=== PATIENT | male | born 1960 | race Caucasian/White ===

== ENCOUNTER 2016-12-03 07:02 | Day surgery (SDC) | payer BC, OTHER ==
[~2016-12-03 07:02] MED LIST: Lactated Ringers 1,000 ML IV SCH
[2016-12-03] MEDS ORDERED: Lidocaine 2% 5 ML SDV ONE (07:26)
[2016-12-03] MEDS ORDERED: fentaNYL 100 MCG/2 ML SDV ONE (07:27)
[2016-12-03] MEDS ORDERED: Propofol 200 MG/20 ML SDV ONE ×2 (07:27→08:44)
[2016-12-03] MEDS ORDERED: Midazolam 1 MG/ML 2 ML SDV ONE (07:27)
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
--- NOTE | 2016-12-03 09:07 | PCM.OPNOTE ---
- General Post-Op/Procedure Note Date of Surgery/Procedure: 12/03/16 Operative Procedure(s): Colonoscopy Pre Op Diagnosis: Desire for colorectal cancer screening Post-Op Diagnosis: No evidence of neoplasia Anesthesia Technique: MAC (ASA II) Primary Surgeon: Melo Edgar Condition: Good Free Text/Narrative:: Dictation [id number] CPT CODE [id number]
[2016-12-03] MEDS ORDERED: Lactated Ringers 1,000 ML IV SCH (09:15)
[2016-12-03 10:16] VITALS: BP 94/56
--- NOTE | 2016-12-03 14:09 | OR ---
SURGEON: Melo Edgar M.D. DATE OF PROCEDURE: 12/03/2016 OPERATION PERFORMED: Colonoscopy. ANESTHESIA: MAC. ASA CLASSIFICATION: II. PREOPERATIVE DIAGNOSIS: Desire for colorectal cancer screening. POSTOPERATIVE DIAGNOSIS: No evidence of neoplasia. DESCRIPTION OF PROCEDURE: The patient was taken to the endoscopy room and positioned on the endoscopy table in the left lateral decubitus position. Time-out was called for appropriate identification of the patient and procedure. Monitored anesthesia care was provided. The colonoscope was inserted into the rectum and advanced with minimal difficulty to the cecum. Cecum was identified by internal landmarks and external pressure. The colonoscope was retroflexed in the cecum to visualize the ascending colon from below, then straightened, and slowly withdrawn. Cecum, ascending colon, hepatic flexure, transverse colon, splenic flexure, descending colon, sigmoid colon, and rectum were very well visualized. No tumors, polyps, diverticula, or angiodysplastic changes were noted anywhere throughout the lower gastrointestinal tract. Once the colonoscope was withdrawn to the rectum, it was retroflexed to visualize the anal orifice from above. The patient does have some minor internal hemorrhoids. No acute bleeding was noted. No tumors or polyps were encountered in the lower rectum. The colonoscope was straightened, the rectum aspirated, and the colonoscope removed. The patient tolerated the procedure well and was taken to recovery room in stable condition. KYLER MORRISON /[id number]
== END 2016-12-03 09:50 | disposition home or self-care (01) ==
LOC: MW.SDS 07:02
PROVIDERS: ATTEND Surgery
PROC: 0DJD8ZZ Inspection of Lower Intestinal Tract, Via Natural or Artificial Opening Endoscopic (ICD-10-PCS; principal; 2016-12-03)
DX: Z12.11 Encounter for screening for malignant neoplasm of colon (principal); K64.8 Other hemorrhoids; M75.41 Impingement syndrome of right shoulder; F17.210 Nicotine dependence, cigarettes, uncomplicated; Z98.1 Arthrodesis status; Z90.5 Acquired absence of kidney; Z96.649 Presence of unspecified artificial hip joint; Z98.890 Other specified postprocedural states; Z79.899 Other long term (current) drug therapy; Z90.49 Acquired absence of other specified parts of digestive tract
CPT/HCPCS: 45378; J2250; J3010; J7120; J2704

== ENCOUNTER 2017-02-23 20:09 | Emergency (ER) | payer BC ==
[2017-02-23] MEDS ORDERED: Ketorolac 60 MG/2 ML SDV IM ONE (20:33)
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
[2017-02-24 01:49] VITALS: BP 135/72
--- NOTE | 2017-02-25 14:07 | CR ---
EXAM DATE: 02/23/17 PATIENT'S AGE: 56 Patient: [facility] Facility: [place], [place] Site . Site : 1960 Study: XRay Spine Cervical [id number] 9:04:52 PM Ordering Physician: Doctor Patricio Final Report: Indication: Neck pain. History of fusion. Technique: Three upright views of the cervical spine. Comparison: None. Findings: Solid bony anterior fusion of C4-C7. Hardware intact. C7 and T1 interspace poorly visualized on the lateral view. Otherwise unremarkable. Impression: Solid bony C4-C7 anterior fusion. Dictated by Eliseo Bauer MD @ Feb 23 2017 9:26PM (Electronic Signature) Report Signed by Proxy. FRANCISCO JAVIER
== END 2017-02-23 21:33 | disposition home or self-care (01) ==
LOC: MW.ED 20:09
DX: M43.6 Torticollis (principal); F17.210 Nicotine dependence, cigarettes, uncomplicated; Z79.899 Other long term (current) drug therapy
CPT/HCPCS: 72040; 96372; 99283; J1885; J2360